=== PATIENT | female | born 1985 | race African-American/Black ===

== ENCOUNTER 2017-07-21 21:35 | Emergency (ER) | payer BC ==
[~2017-07-21] VITALS: Ht 167.6 cm; Wt 93.0 kg
[2017-07-22 00:09] VITALS: BP 125/82
== END 2017-07-22 00:09 | disposition home or self-care (01) ==
LOC: ED 21:35
DX: O26.892 Other specified pregnancy related conditions, second trimester (principal); R07.9 Chest pain, unspecified; Z3A.17 17 weeks gestation of pregnancy